=== PATIENT | female | born 1950 ===

== ENCOUNTER 2021-03-18 12:35 | Day surgery (SDC) | payer OTHER ==
[~2021-03-18 12:35] MED LIST: CRESTOR5 MG PO; MILLIPRED5 MG PO; OMEPRAZ PO; RINVOQ ER15 MG PO
== END 2021-03-18 18:20 | disposition home or self-care (01) ==
LOC: CIR.AMB 12:35
PROVIDERS: ATTEND Student in an Organized Health Care Education/Training Program
DX: N39.41 Urge incontinence (principal); Z20.822 Contact with and (suspected) exposure to COVID-19
CPT/HCPCS: 64590; 64581; C1778; L8679